=== PATIENT | male | born 2000 | race Caucasian/White ===

== ENCOUNTER 2019-03-02 21:49 | Inpatient (IN) | payer OTHER ==
--- NOTE | 2019-03-02 22:19 | ED ---
Psychiatric Complaint - HPI Summary HPI Summary: 18 yo male to female pt presents with suicidal thoughts. They tell me that they have had suicidal thoughts for year and they see therapist and psychiatrist for this. Currently undergoing therapy and medication treatment. Taking hormones for transition. Over the last 4 days pt admits to increased thoughts of wanting to harm themselves. Specifically they tell me that they want to stab themselves. Has never acted on anything. Denies wanting to hurt others. Denies recent illness, fevers, chills, SOB, chest pain, abdominal pain, n/v - History Of Current Complaint Chief Complaint: EDSuicidal Time Seen by Provider: 03/02/19 22:19 Hx Obtained From: Patient - Allergies/Home Medications Allergies/Adverse Reactions: Allergies Allergy/AdvReac Type Severity Reaction Status Date / Time [place] And Derivatives Allergy See Comment Verified 03/02/19 21:56 corn syrup Allergy See Comment Verified 03/02/19 21:56 gluten Allergy See Comment Verified 03/02/19 21:56 milk Allergy Nausea And Verified 03/02/19 21:56 Vomiting Home Medications: Home Medications Estradiol [Estrace] 2 mg PO BID 03/02/19 [History Confirmed 03/02/19] Fexofenadine/Pseudoephedrine [Marcie-D 24 Hour Tablet] 1 each PO DAILY [History Confirmed 03/02/19] Fluticasone Furoate [Flonase Sensimist] 2 puff BOTH NARES DAILY 03/02/19 [ History Confirmed 03/02/19] [place] Carbonate TAB* 300 mg PO BID 03/02/19 [History Confirmed 03/02/19] PARoxetine HCL TAB* [Paxil TAB*] 40 mg PO DAILY 03/02/19 [History Confirmed 02/08] Pseudoephedrine HCL ER TAB* [Sudafed 12 Hour*] 120 mg PO DAILY 03/02/19 [ History Confirmed 03/02/19] Spironolactone TAB* [Aldactone TAB*] 100 mg PO BID 03/02/19 [History Confirmed 03/02/19] diphenhydrAMINE HCl [Benadryl Allergy] 25 mg PO BEDTIME 03/02/19 [History Confirmed 03/02/19] PMH/Surg Hx/FS Hx/Imm Hx Endocrine/Hematology History: Denies: Hx Diabetes Respiratory History: Denies: Hx Asthma, Hx Chronic Obstructive Pulmonary Disease (COPD) Neurological History: Denies: Hx CVA, Hx Headaches Psychiatric History: Reports: Hx Anxiety, Hx Depression, Hx Bipolar Disorder - Surgical History Surgical History: None Infectious Disease History: No Infectious Disease History: Denies: Traveled Outside the [place] in Last 30 Days - Family History Known Family History: Positive: None - Social History Lives: With Family Alcohol Use: Occasionally Smoking Status (MU): Never Smoked Tobacco Review of Systems Constitutional: Negative Eyes: Negative ENT: Negative Cardiovascular: Negative Respiratory: Negative Gastrointestinal: Negative Genitourinary: Negative Musculoskeletal: Negative Skin: Negative Neurological: Negative Positive: Depressed All Other Systems Reviewed And Are Negative: No Physical Exam - Summary Physical Exam Summary: GENERAL: NAD. WDWN. No pain distress. SKIN: No rashes, sores, or open wounds. HEENT: Head: AT/NC Eyes: PERRLA. EOM intact. Conjunctiva clear without inflammation or discharge. Ears: Hearing grossly normal. TMs intact, no bulging, erythema, or edema. Nose: Nasal mucosa pink and moist. NTTP maxillary and frontal sinus. Throat: Posterior oropharynx without exudates, erythema, or tonsillar enlargement. Uvula midline. NECK: Supple. Nontender. No lymphadenopathy. CHEST: CTAB. No r/r/w. No accessory muscle use. Breathing comfortably and in no distress. CV: RRR. Pulses intact. Brisk cap refill. ABDOMEN: Soft. NTTP. No distention or guarding., No organomegaly. No CVA tenderness. Bowel sounds present MSK: FROM and 5/5 strength throughout. No edema. NEURO: Alert. PSYCH: Age appropriate behavior. Triage Information Reviewed: Yes Vital Signs On Initial Exam: Initial Vitals Temp Pulse Resp BP Pulse Ox 98.2 F 100 15 120/73 98 03/02/19 21:52 03/02/19 21:52 03/02/19 21:52 03/02/19 21:52 03/02/19 21:52 Vital Signs Reviewed: Yes Procedures - Sedation Patient Received Moderate/Deep Sedation with Procedure: No Diagnostics - Vital Signs Vital Signs Temp Pulse Resp BP Pulse Ox 03/02/19 21:52 98.2 F 100 15 120/73 98 - Laboratory Lab Results: Laboratory Tests 03/03/19 03/03/19 03/03/19 00:03 00:03 00:39 WBC 9.7 RBC 4.21 Hgb 13.1 L Hct 39 L MCV 93 MCH 31 MCHC 34 RDW 13 Plt Count 167 MPV 10.9 H Neut % (Auto) 70.4 Lymph % (Auto) 19.8 [place] % (Auto) 8.0 Eos % (Auto) 1.1 Baso % (Auto) 0.7 Absolute Neuts (auto) 6.8 Absolute Lymphs (auto) 1.9 Absolute Monos (auto) 0.8 Absolute Eos (auto) 0.1 Absolute Basos (auto) 0.1 Absolute Nucleated RBC 0.0 Nucleated RBC % 0.1 Sodium 137 Potassium 3.9 Chloride 105 Carbon Dioxide 27 Anion Gap 5 BUN 11 Creatinine 0.77 Est GFR ( Amer) 155.9 Est GFR (Non-Af Amer) 128.8 BUN/Creatinine Ratio 14.3 Glucose 100 Calcium 9.0 Total Bilirubin 0.20 AST 19 ALT 16 Alkaline Phosphatase 44 Total Protein 6.8 Albumin 4.4 Globulin 2.4 Albumin/Globulin Ratio 1.8 Urine Color Yellow Urine Appearance Clear Urine pH 5.0 Ur Specific [place] 1.019 Urine Protein Negative Urine Ketones Negative Urine Blood Negative Urine Nitrate Negative Urine Bilirubin Negative Urine Urobilinogen Negative Ur Leukocyte Esterase Negative Urine Glucose Negative Salicylates < 2.50 Acetaminophen < 15 Serum Alcohol < 10 Result Diagrams: 03/03/19 00:03 03/03/19 00:03 Lab Statement: Any lab studies that have been ordered have been reviewed, and results considered in the medical decision making process. Course/Dx - Course Course Of Treatment: Labs WNL. Mental Health admit to Dr. Carvajal. Vol status - Differential Dx/Clinical Impression Provider Diagnosis: Depressive disorder Discharge ED - Sign-Out/Discharge Documenting (check all that apply): Patient Departure - Discharge Plan Condition: Stable Disposition: ADMITTED TO [facility] Referrals: [facility] [Primary Care Provider] - - Billing Disposition and Condition Condition: STABLE Disposition: Admitted to [facility]
[2019-03-03 00:10] LABS: Hematocrit 39 % (42-52); Hemoglobin 13.1 g/dL (14.0-18.0); Mean Corpuscular HGB Conc 34 g/dL (31-36); Mean Corpuscular Hemoglobin 31 pg (27-31); Mean Corpuscular Volume 93 fL (80-94); Mean Platelet Volume 10.9 fL (7.4-10.4); Platelet Count 167 10^3/uL (150-450); Red Blood Count 4.21 10^6 /uL (4.18-5.48); Red Cell Distribution Width 13 % (10-15); White Blood Count 9.7 10^3/uL (3.5-10.8)
[2019-03-03 00:13] LABS: ABS Basophils 0.1 10^3/ul (0-0.2); ABS Eosinophils 0.1 10^3/ul (0-0.6); ABS Lymphocytes 1.9 10^3/ul (1.0-4.8); ABS Monocytes 0.8 10^3/ul (0-0.8); ABS Neutrophils 6.8 10^3/ul (1.5-7.7); Eosinophil % 1.1 %; Lymphocyte % 19.8 %; Nucleated Red Blood Cells % 0.1
[2019-03-03 00:26] LABS: ALT 16 U/L (7-52); AST 19 U/L (13-39); Albumin 4.4 g/dL (3.2-5.2); Albumin/Globulin Ratio 1.8 (1-3); Alkaline Phosphatase 44 U/L (34-104); Anion Gap 5 mmol/L (2-11); BUN/Creatinine Ratio 14.3 (8-20); Blood Urea Nitrogen 11 mg/dL (6-24); CO2 Carbon Dioxide 27 mmol/L (22-32); Chloride 105 mmol/L (101-111); EGFR African American 155.9 (>60); EGFR Non-African American 128.8 (>60); Globulin 2.4 g/dL (2-4); Glucose 100 mg/dL (70-100); Potassium 3.9 mmol/L (3.5-5.0); Sodium 137 mmol/L (135-145); Total Protein 6.8 g/dL (6.4-8.9)
[2019-03-03 00:45] LABS: Acetaminophen < 15 mcg/mL; Alcohol < 10 mg/dL (<10); Salicylate < 2.50 mg/dL (<30)
[2019-03-03 00:47] LABS: Urine Appearance Clear; Urine Bilirubin Negative (Negative); Urine Blood Negative (Negative); Urine Color Yellow; Urine Glucose Negative (Negative); Urine Ketones Negative (Negative); Urine Nitrite Negative (Negative); Urine Protein Negative (Negative); Urine Specific Gravity 1.019 (1.010-1.030); Urine Urobilinogen Negative (Negative)
[2019-03-03 00:59] LABS: TSH (Thyroid Stimulating Horm) 5.57 mcIU/mL (0.34-5.60)
[2019-03-03 01:03] LABS: Urine Benzodiazepine Screen None Detected (None Detect); Urine Opiates Screen None Detected (None Detect)
[2019-03-03] MEDS ORDERED: Acetaminophen TAB* 325 MG PO PRN (04:58)
[2019-03-03] MEDS ORDERED: Al Hydrox/Mg Hydrox/Simet LIQ* 30 ML UDC PO PRN (04:58)
[2019-03-03] MEDS ORDERED: PARoxetine HCL TAB* 40 MG PO SCH (09:00)
[2019-03-03] MEDS: Vitamin THERAPEUTIC TAB PO SCH (11:21)
[2019-03-03] MEDS: Lithium Carbonate TAB* 300 MG PO SCH ×2 (11:21→22:21)
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
[2019-03-03] MEDS: Spironolactone TAB* 25 MG PO SCH (22:21)
[2019-03-03] MEDS: CMC:Estradiol TAB(NF) 1 MG TAB PO SCH (22:21)
[2019-03-04] MEDS: CMC:Estradiol TAB(NF) 1 MG TAB PO SCH ×2 (08:01→21:40)
[2019-03-04] MEDS: Vitamin THERAPEUTIC TAB PO SCH (08:02)
[2019-03-04] MEDS: Escitalopram * 10 MG TAB PO SCH (08:02)
[2019-03-04] MEDS: PARoxetine HCL TAB* 20 MG PO SCH (08:02)
[2019-03-04] MEDS: Spironolactone TAB* 25 MG PO SCH ×2 (08:02→21:38)
[2019-03-04] MEDS: Lithium Carbonate TAB* 300 MG PO SCH ×2 (08:02→21:39)
[2019-03-04] MEDS ORDERED: Influenza VAC *QUAD* 2019-20* 0.5 ML SYRINGE IM ONE (09:00)
--- NOTE | 2019-03-04 13:31 | PN ---
Subjective - Subjective Date of Service: 03/04/19 Service Type: 23316 Hosp care 35 min high complexity Subjective: I met with Madelyn and her mom at lunch time. They wanted to discuss discharge, medication changes, and future plans. We talked about medication changes already made: decrease in Paxil and start of Lexapro and getting a lithium level. Madelyn feels like the lithium hasn't helped. We are looking at an increased dose of lithium, depending on what the level is. We discussed the possibility that some of her suicidality could be habitual. Madelyn has acknowledged that she does tend to think in black and white and extremes. She acknowledged that she has never had the opportunity to learn about feelings as she spent so much of her childhood being someone she wasn't, i.e., the wrong gender. Objective - General Observations Appearance: Neat Appears Stated Age: Yes Stature: WNL Posture: WNL Eye Contact: Avoidant Behavior/Activity: Peculiar - Interaction Observations Attitude Towards Examiner: Cooperative, Anxious, Defensive, Evasive Stated Mood: Dysphoric, Anxious Affect: Restricted Speech Pattern/Tone: Clear Thought Process: Coherent Perception: WNL Thought Content: Preoccupation/Ruminations, Depressive Thought Process: Lethality: Passive Wish, Suicidal Planning Hallucination Type: None Delusion Type: None - Cognitive Function Orientation: A&O x 4 Level of Consciousness: Awake, Alert, Appropriate Cognition: WNL Estimated Intelligence: Normal Insight: Mostly Blames Others for Problems Judgment Within Normal Limits: No Ability to Make Reasonable Decisions: Mildly Impaired - Medication Compliance Cooperative with Inpatient Medication Regimen: Yes - Group Participation Participates in Group Activities: Partial Assessment - Assessment Merits Inpatient Hospitalization: For Immediate Safety Inpatient DSM-V Dx: F33.1 Clinical Impression: Andre, whose name has legally been changed to Madelyn, is a 18 year old male to female transgender person with major depressive disorder who comes to the hospital with suicidal ideation, what she terms "dysphoria," and difficulty with emotion regulation. Plan - Plan Treatment Plan: Name: ANDRE BANG Birthdate: 2000 [id number] 03/04/19 Madelyn will have a lithium level tomorrow morning. She will continue to transition from Paxil to Lexapro. She will work on DBT emotion regulation skills. Continued Medication Management: Different Medication Medications: Current Medications Acetaminophen (Tylenol Tab*) 650 mg PO Q4H PRN PRN Reason: PAIN or TEMP > 101 F Al Hydrox/Mg Hydrox/Simethicone (Maalox Plus*) 30 ml PO Q4H PRN PRN Reason: INDIGESTION Escitalopram Oxalate (Lexapro *) 10 mg PO DAILY [facility] Last Admin: 03/04/19 08:02 Dose: 10 mg Estradiol (Estradiol Tab(Nf)) 2 mg PO BID [facility] Last Admin: 03/04/19 08:01 Dose: 2 mg [place] Carbonate (Rogers Carbonate Tab*) 300 mg PO BID [facility] Last Admin: 03/04/19 08:02 Dose: 300 mg Multivitamins (Theragran Tab*) 1 tab PO DAILY [facility] Last Admin: 03/04/19 08:02 Dose: 1 tab Paroxetine HCl (Paxil Tab*) 20 mg PO DAILY [facility] Last Admin: 03/04/19 08:02 Dose: 20 mg Spironolactone (Aldactone Tab*) 100 mg PO BID [facility] Last Admin: 03/04/19 08:02 Dose: 100 mg - Discharge Plan Discharge Plan: Outpatient Follow Up Outpatient Program: Counseling/Psych Services at [place]
[2019-03-05] MEDS: Escitalopram * 10 MG TAB PO SCH (08:24)
[2019-03-05] MEDS: Lithium Carbonate TAB* 300 MG PO SCH (08:25)
[2019-03-05] MEDS: Spironolactone TAB* 25 MG PO SCH ×2 (08:26→20:27)
[2019-03-05] MEDS: Vitamin THERAPEUTIC TAB PO SCH (08:26)
[2019-03-05] MEDS: PARoxetine HCL TAB* 20 MG PO SCH (08:26)
[2019-03-05] MEDS: CMC:Estradiol TAB(NF) 1 MG TAB PO SCH ×2 (08:27→21:06)
--- NOTE | 2019-03-05 13:40 | PN ---
Subjective - Subjective Date of Service: 03/05/19 Service Type: 89712 Hosp care 25 min moderate complexity Subjective: Madelyn's first comment today was that she didn't like being moved to a new room. She states she has trouble with change and transitions. Still, she states she feels more stable in her emotions and she feels less depressed. She remarked that in a setting with fewer stressors, there is also less stress. She also was working on time management, as that was a recent group. She has not finished reading the emotion regulation chapter that was printed for her. She stated she goes to groups and doesn't have time to read or do the application of what she's read. She does say she will do her best to continue working and that she suspects it will be helpful. Objective - General Observations Appearance: Neat Appears Stated Age: Yes Stature: WNL Posture: Slumped Eye Contact: Avoidant Behavior/Activity: WNL - Interaction Observations Attitude Towards Examiner: Cooperative, Demanding Stated Mood: Euthymic Affect: Restricted Speech Pattern/Tone: Clear Thought Process: Coherent Perception: WNL Thought Content: Preoccupation/Ruminations Hallucination Type: None Delusion Type: None - Cognitive Function Orientation: A&O x 4 Level of Consciousness: Awake, Alert, Appropriate Cognition: WNL Estimated Intelligence: Normal Insight: WNL Judgment Within Normal Limits: Yes - Medication Compliance Cooperative with Inpatient Medication Regimen: Yes - Group Participation Participates in Group Activities: Yes Assessment - Assessment Merits Inpatient Hospitalization: For Immediate Safety, For Discharge Planning Inpatient DSM-V Dx: F33.1 Clinical Impression: Andre, whose name has legally been changed to Madelyn, is a 18 year old male to female transgender person with major depressive disorder who comes to the hospital with suicidal ideation, what she terms "dysphoria," and difficulty with emotion regulation. Plan - Plan Treatment Plan: Name: ANDRE BANG Birthdate: 2000 [id number] 03/04/19 Madelyn will have a lithium level tomorrow morning. She will continue to transition from Paxil to Lexapro. She will work on DBT emotion regulation skills. 03/05/19 Madelyn's lithium level was <0.4. She will have increased lithium tonight (300 mg QAM, 600 mg QHS). She agrees to be discharged tomorrow and has made plans to go talk to her teachers on Sunday and take her time reintegrating into college life. Medications: Current Medications Acetaminophen (Tylenol Tab*) 650 mg PO Q4H PRN PRN Reason: PAIN or TEMP > 101 F Al Hydrox/Mg Hydrox/Simethicone (Maalox Plus*) 30 ml PO Q4H PRN PRN Reason: INDIGESTION Escitalopram Oxalate (Lexapro *) 10 mg PO DAILY [facility] Last Admin: 03/05/19 08:24 Dose: 10 mg Estradiol (Estradiol Tab(Nf)) 2 mg PO BID [facility] Last Admin: 03/05/19 08:27 Dose: 2 mg [place] Carbonate ([place] Carbonate Tab*) 600 mg PO BEDTIME [facility] [place] Carbonate ([place] Carbonate Tab*) 300 mg PO DAILY [facility] Multivitamins (Theragran Tab*) 1 tab PO DAILY [facility] Last Admin: 03/05/19 08:26 Dose: 1 tab Paroxetine HCl (Paxil Tab*) 20 mg PO DAILY [facility] Last Admin: 03/05/19 08:26 Dose: 20 mg Spironolactone (Aldactone Tab*) 100 mg PO BID [facility] Last Admin: 03/05/19 08:26 Dose: 100 mg - Discharge Plan Discharge Plan: Outpatient Follow Up
--- NOTE | 2019-03-05 16:45 | PN ---
BSU: Group Therapy Note - Service Type Service Type: [id number] Group Psychotherapy - Group Participation Patient Participating in Group: Yes Level of Group Participation: Attentive, Spontaneously Participate Relatedness to Group: Well Related - Additional Group Comments Group Comments: Madelyn came to group and participated a few times. She appeared to be generally interested, but was quiet during the group.
[2019-03-05 20:33] VITALS: BP 110/60
[2019-03-05] MEDS ORDERED: Lithium Carbonate TAB* 300 MG PO SCH (21:00)
[2019-03-06] MEDS: Vitamin THERAPEUTIC TAB PO SCH (08:15)
[2019-03-06] MEDS: Escitalopram * 10 MG TAB PO SCH (08:15)
[2019-03-06] MEDS: PARoxetine HCL TAB* 20 MG PO SCH (08:15)
[2019-03-06] MEDS: Spironolactone TAB* 25 MG PO SCH (08:15)
[2019-03-06] MEDS: CMC:Estradiol TAB(NF) 1 MG TAB PO SCH (08:16)
[2019-03-06 08:38] LABS: HDL Cholesterol 58.8 mg/dL
[2019-03-06] MEDS ORDERED: Lithium Carbonate TAB* 300 MG PO SCH (09:00)
[2019-03-06] MEDS ORDERED: Lithium Carbonate ER* 450 MG TAB.ER PO SCH (21:00)
[2019-03-07] MEDS ORDERED: Escitalopram * 20 MG TABLET PO SCH (09:00)
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
== END 2019-03-06 12:43 | disposition home or self-care (01) | DRG 751 ==
LOC: ED 21:49 → BSU 03-03 01:15
PROVIDERS: ADMIT Psychiatry & Neurology Psychiatry; ATTEND Psychiatry & Neurology Psychiatry
PROC: GZHZZZZ Group Psychotherapy (ICD-10-PCS; principal; 2019-03-05)
DX: F33.2 Major depressive disorder, recurrent severe without psychotic features (principal); R45.851 Suicidal ideations; F41.9 Anxiety disorder, unspecified; F64.0 Transsexualism; Z91.011 Allergy to milk products; Z91.018 Allergy to other foods; Z72.89 Other problems related to lifestyle; Z23 Encounter for immunization
CPT/HCPCS: 36415; 80053; 80061; 80178; 80307; 80320; 80329; 81003; 83036; 84443; 85025; 90853; 99222; 99232; 99233; 99238; 99284; A9270-GY; G0480